=== PATIENT | female | born 1930 | race African-American/Black ===

== ENCOUNTER 2016-10-24 13:10 | Emergency (ER) | payer OTHER ==
[~2016-10-24] VITALS: Ht 162.6 cm; Wt 60.0 kg
[~2016-10-24 13:10] MED LIST: DIGOXIN; WARFARIN
[2016-10-24] MEDS ORDERED: ACETAMINOPHEN 325MG TABLET PO ONE (14:15)
[2016-10-24 14:37] LABS: HEMATOCRIT. 42.9 % (36.0-48.0); HEMOGLOBIN. 14.2 g/dL (12.0-16.0); MEAN CORPUSCULAR HEMOGLOBIN 25.5 pg (28.0-32.0); MEAN CORPUSCULAR HGB CONC 33.1 g/dL (31.0-37.0); MEAN CORPUSCULAR VOLUME 77.3 fL (81.0-99.0); PLATELET 193 x1000/uL (130-400); RED BLOOD CELL COUNT 5.55 mill/uL (4.2-5.4); RED CELL DISTRIBUTION WIDTH 20.8 % (11.6-14.6); WHITE BLOOD COUNT 7.8 x1000/uL (4.5-11.0)
[2016-10-24 14:40] LABS: DIFFERENTIAL COMMENT 1
[2016-10-24 14:43] LABS: CLARITY URINE CLOUDY (CLEAR); COLOR URINE YELLOW (YELLOW); GLUCOSE URINE NEGATIVE (NEGATIVE); KETONES URINE NEGATIVE (NEGATIVE); LEUKOCYTE ESTERASE URINE 2+ (NEGATIVE); NITRITE URINE NEGATIVE (NEGATIVE); OCCULT BLOOD URINE TRACE (NEGATIVE); PROTEIN URINE 1+ (NEGATIVE)
[2016-10-24 14:53] LABS: ALANINE AMINOTRANSFERASE 23 IU/L (13-61); ALBUMIN 3.1 g/dL (3.4-5.0); ANION GAP 13; CALCIUM 10.3 mg/dL (8.5-10.1); CARBON DIOXIDE 28 mEq/L (21-32); CHLORIDE 106 mEq/L (98-107); INDEX HEMOLYSI 3 (1-3); INDEX ICTERIC 1 (1-4); INDEX LIPEMIC 1 (1-3); UREA NITROGEN BLOOD 14 mg/dL (7-21); eGFR > 60 mL/min (>60)
[2016-10-24 14:56] LABS: ANISOCYTOSIS 2+; GIANT PLATELETS 1+; OVALOCYTES 2+; PLATELET ESTIMATE NORMAL
[2016-10-24 15:01] LABS: WBC URINE 25-50 /hpf (0-2)
[2016-10-24 15:02] LABS: BACTERIA URINE 2+; RBC URINE 0-2 /hpf (0-2)
[2016-10-24 15:03] LABS: SQUAMOUS EPITHELIAL CELL URINE RARE /lpf (RARE/1+)
[2016-10-24 15:04] LABS: DIGOXIN 1.2 ng/mL (0.9-2.0)
[2016-10-24] MEDS ORDERED: CEFTRIAXONE 1 G PREMIX 50 ML IV ONE (15:30)
[2016-10-24] MEDS ORDERED: SODIUM CHLORIDE 0.9% 500 ML IV ONE (15:42)
[2016-10-24 17:07] VITALS: BP 170/98
== END 2016-10-24 17:39 | disposition short-term general hospital (02) ==
LOC: ER 14:01
DX: R62.7 Adult failure to thrive (principal); I48.91 Unspecified atrial fibrillation; R41.82 Altered mental status, unspecified; N39.0 Urinary tract infection, site not specified; I10 Essential (primary) hypertension; M19.90 Unspecified osteoarthritis, unspecified site
CPT/HCPCS: 36415; 51702; 71010; 80053; 80162; 81001; 85025; 85610; 93005; 96365; 99285; J0696; J7030

== ENCOUNTER 2017-04-06 12:25 | Inpatient (IN) | payer OTHER ==
[~2017-04-06] VITALS: Ht 162.6 cm; Wt 68.9 kg
[2017-04-06] MEDS ORDERED: SODIUM CHLORIDE 0.9% 1,000 ML IV ONE ×2 (12:49→15:10)
[2017-04-06 13:32] LABS: HEMATOCRIT. 22.7 % (36.0-48.0); MEAN CORPUSCULAR HEMOGLOBIN 20.7 pg (28.0-32.0); MEAN CORPUSCULAR VOLUME 66.9 fL (81.0-99.0); MEAN PLATELET VOLUME 9.7 fl (7.4-10.4); PLATELET 572 x1000/uL (130-400); RED CELL DISTRIBUTION WIDTH 28.3 % (11.6-14.6)
[2017-04-06 13:39] LABS: INR 1.2; PARTIAL THROMBOPLASTIN TIME 21.7 sec (23.4-31.0); PROTHROMBIN TIME 12.5 sec (9.4-11.6)
[2017-04-06] MEDS ORDERED: LEVOFLOXACIN 750MG PREMIX 150 ML IV ONE (13:45)
[2017-04-06 13:49] LABS: CARBON DIOXIDE 24 mEq/L (21-32); CHLORIDE 105 mEq/L (98-107); ETHANOL BLOOD < 10 mg/dL; TROPONIN I 0.04 ng/mL (0.00-0.04)
[2017-04-06 13:53] LABS: BG CARBOXYHEMOGLOBIN 0.3 % (0.5-1.5); BG DEOXYHEMOGLOBIN 3.5 % (0.0-5.0); BG FRACTION INSPIRED OXYGEN 21; BG HCO3 ACT 20.3 mmol/L (22.0-26.0); BG METHEMOGLOBIN 0.1 % (0.0-1.5); BG OXYGEN SATURATION 96.5 % (92.0-98.5); BG OXYHEMOGLOBIN 96.1 % (94.0-97.0); BG PCO2 29.2 mmHg (35.0-45.0); BG PO2 92.4 mmHg (75.0-100.0); BG SAMPLE SITE RIGHT RADIAL; BG TOTAL HEMOGLOBIN 7.6 g/dL (12.0-18.0); BG VENT MODE ROOM AIR
[2017-04-06 14:03] LABS: PLATELET ESTIMATE INCREASED
[2017-04-06 14:05] LABS: DIGOXIN 1.9 ng/mL (0.9-2.0)
[2017-04-06] MEDS ORDERED: LIDOCAINE HCL 1% 20ML VIAL (Pyxis) INJ ONE (14:41)
[2017-04-06] MEDS ORDERED: PANTOPRAZOLE SODIUM 40 MG/VIAL IV ONE (15:15)
[2017-04-06 17:07] LABS: CLARITY URINE CLOUDY (CLEAR); COLOR URINE DARK YELLOW (YELLOW); GLUCOSE URINE NEGATIVE (NEGATIVE); KETONES URINE NEGATIVE (NEGATIVE); LEUKOCYTE ESTERASE URINE TRACE (NEGATIVE); NITRITE URINE NEGATIVE (NEGATIVE); OCCULT BLOOD URINE NEGATIVE (NEGATIVE); PROTEIN URINE TRACE (NEGATIVE); SPECIFIC GRAVITY URINE 1.022 (1.005-1.030)
[2017-04-06 17:24] LABS: *AMPHETAMINES SCREEN URINE NEGATIVE (NEGATIVE); *BARBITURATES SCREEN URINE NEGATIVE (NEGATIVE); *BENZODIAZEPINES SCREEN URINE NEGATIVE (NEGATIVE); *COCAINE SCREEN URINE NEGATIVE (NEGATIVE); CANNABINOID URINE SCREEN NEGATIVE (NEGATIVE); METHADONE URINE SCREEN NEGATIVE (NEGATIVE); OPIATES URINE SCREEN NEGATIVE (NEGATIVE); PHENCYCLIDINE URINE SCREEN NEGATIVE (NEGATIVE)
[2017-04-06] MEDS ORDERED: MAGNESIUM/ALUMINUM HYDROXIDE/SIMETHICONE 30ML UDC PO PRN (21:15)
[2017-04-06] MEDS ORDERED: IPRATROPIUM/ALBUTEROL 0.5-3(2.5)MG/3ML NEB INH PRN (21:15)
[2017-04-06] MEDS ORDERED: DEXTROSE 50% WATER 50ML SYRINGE IV PRN (21:15)
[2017-04-06] MEDS ORDERED: ONDANSETRON HCL 4MG/2ML VIAL IV PRN (21:15)
[2017-04-06] MEDS ORDERED: DIPHENHYDRAMINE 50MG/ML VIAL IV PRN (21:15)
[2017-04-06] MEDS ORDERED: ACETAMINOPHEN 650MG/20.3ML UDC GT PRN (21:15)
[2017-04-06] MEDS ORDERED: DOCUSATE SODIUM 100MG CAPSULE PO PRN (21:15)
[2017-04-06] MEDS ORDERED: CLONIDINE 0.1MG TABLET PO PRN (21:15)
[2017-04-06] MEDS ORDERED: ACETAMINOPHEN 650MG SUPP PR PRN (21:15)
[2017-04-06] MEDS ORDERED: HYDROCODONE/ACETAMINOPHEN 5/325MG TABLET PO PRN (21:15)
[2017-04-06 22:00] VITALS: BP 125/54
[2017-04-06] MEDS ORDERED: NA PHOS,M-B/NA PHOS,DI-BA ENEMA 118ML PR PRN (22:00)
[2017-04-06] MEDS: SODIUM CHLORIDE 0.9% INJ 3ML FLUSH IVF SCH (23:45)
[2017-04-07] VITALS (18 sets, daily range): BP systolic 100–134; BP diastolic 36–76
[2017-04-07] MEDS: SODIUM CHLORIDE 0.9% INJ 3ML FLUSH IVF SCH ×3 (06:45→21:34)
[2017-04-07] MEDS: BLOOD SUGAR DIAGNOSTIC STRIP TEST SCH ×4 (07:30→21:33)
[2017-04-07] MEDS: INSULIN LISPRO 100 UNITS/ML SUBCUT SCH ×4 (08:00→21:00)
[2017-04-07 10:16] LABS: BASOPHILS % 0.4 % (0.0-2.0); EOSINOPHILS % 0.7 % (0.0-5.0); HEMATOCRIT. 23.5 % (36.0-48.0); HEMOGLOBIN. 7.3 g/dL (12.0-16.0); LYMPHOCYTES % 9.8 % (20.0-50.0); MEAN CORPUSCULAR HEMOGLOBIN 22.5 pg (28.0-32.0); MEAN CORPUSCULAR VOLUME 72.4 fL (81.0-99.0); MEAN PLATELET VOLUME 9.3 fl (7.4-10.4); MONOCYTES % 4.5 % (2.0-8.0); NEUTROPHILS % 84.6 % (40.0-76.0); PLATELET 368 x1000/uL (130-400); RED BLOOD CELL COUNT 3.24 mill/uL (4.2-5.4); RED CELL DISTRIBUTION WIDTH 29.1 % (11.6-14.6)
[2017-04-07 12:28] LABS: CARBON DIOXIDE 23 mEq/L (21-32); CHLORIDE 111 mEq/L (98-107); HDL CHOLESTEROL 18 mg/dL (40-59); LDL CHOLESTEROL 21 mg/dL (5-100); TROPONIN I 0.03 ng/mL (0.00-0.04)
[2017-04-07] MEDS: SODIUM CHLORIDE 0.45% 1,000 ML IV SCH (14:58)
[2017-04-08] VITALS (13 sets, daily range): BP systolic 101–156; BP diastolic 46–79
[2017-04-08 00:50] LABS: HEMATOCRIT 29.2 % (36.0-48.0); HEMOGLOBIN 9.4 g/dL (12.0-16.0)
[2017-04-08] MEDS: SODIUM CHLORIDE 0.45% 1,000 ML IV SCH ×2 (01:43→13:15)
[2017-04-08] MEDS ORDERED: VANCOMYCIN 1 G PREMIX 200 ML IV SCH (04:00)
[2017-04-08] MEDS: SODIUM CHLORIDE 0.9% INJ 3ML FLUSH IVF SCH ×2 (05:06→14:00)
[2017-04-08] MEDS: INSULIN LISPRO 100 UNITS/ML SUBCUT SCH ×3 (08:00→18:00)
[2017-04-08] MEDS: BLOOD SUGAR DIAGNOSTIC STRIP TEST SCH ×3 (08:06→18:27)
[2017-04-08 09:50] LABS: CARBON DIOXIDE 23 mEq/L (21-32); CHLORIDE 111 mEq/L (98-107)
[2017-04-08 11:35] LABS: BASOPHILS % 0.6 % (0.0-2.0); HEMATOCRIT. 30.4 % (36.0-48.0); HEMOGLOBIN. 9.8 g/dL (12.0-16.0); LYMPHOCYTES % 8.8 % (20.0-50.0); MEAN CORPUSCULAR HEMOGLOBIN 24.1 pg (28.0-32.0); MEAN CORPUSCULAR VOLUME 74.9 fL (81.0-99.0); MEAN PLATELET VOLUME 10.1 fl (7.4-10.4); MONOCYTES % 4.7 % (2.0-8.0); NEUTROPHILS % 84.9 % (40.0-76.0); PLATELET 407 x1000/uL (130-400); RED BLOOD CELL COUNT 4.05 mill/uL (4.2-5.4); RED CELL DISTRIBUTION WIDTH 28.9 % (11.6-14.6)
[2017-04-08] MEDS ORDERED: METOPROLOL TARTRATE 25MG TABLET PO SCH (21:00)
[2017-04-08] MEDS ORDERED: PANTOPRAZOLE SODIUM 40 MG/VIAL IV SCH (21:00)
[2017-04-09] MEDS ORDERED: VANCOMYCIN 750 MG PREMIX 150 ML IV SCH ×2 (04:00)
== END 2017-04-08 21:36 | disposition short-term general hospital (02) | DRG 377 ==
LOC: ER 13:30 → 5EST 15:33 → EDBEDREQTM 15:36 → EDBEDREQ 15:36 → ENRESERV 19:18 → EDBEDREQ 23:16
PROVIDERS: ADMIT Family Medicine; ATTEND Family Medicine
PROC: 30233N1 Transfusion of Nonautologous Red Blood Cells into Peripheral Vein, Percutaneous Approach (ICD-10-PCS; principal; 2017-04-06)
PROC: 02HV33Z Insertion of Infusion Device into Superior Vena Cava, Percutaneous Approach (ICD-10-PCS; 2017-04-06)
PROC: B5181ZA Fluoroscopy of Superior Vena Cava using Low Osmolar Contrast, Guidance (ICD-10-PCS; 2017-04-06)
PROC: B548ZZA Ultrasonography of Superior Vena Cava, Guidance (ICD-10-PCS; 2017-04-06)
DX: K92.2 Gastrointestinal hemorrhage, unspecified (principal); E43 Unspecified severe protein-calorie malnutrition; G93.40 Encephalopathy, unspecified; I82.402 Acute embolism and thrombosis of unspecified deep veins of left lower extremity; E87.2 Acidosis; E11.65 Type 2 diabetes mellitus with hyperglycemia; I48.91 Unspecified atrial fibrillation; D62 Acute posthemorrhagic anemia; M19.90 Unspecified osteoarthritis, unspecified site; D72.829 Elevated white blood cell count, unspecified; I10 Essential (primary) hypertension; J44.9 Chronic obstructive pulmonary disease, unspecified; Z74.01 Bed confinement status; Z68.26 Body mass index [BMI] 26.0-26.9, adult; Z79.01 Long term (current) use of anticoagulants; Z79.899 Other long term (current) drug therapy; Z86.73 Personal history of transient ischemic attack (TIA), and cerebral infarction without residual deficits; Z82.49 Family history of ischemic heart disease and other diseases of the circulatory system
CPT/HCPCS: 36415; 36569; 36600; 70450; 71010; 76937; 77001; 78582; 80048; 80053; 80061; 80162; 80305; 80307; 80329; 81001; 82375; 82805; 82962; 83605; 83880; 84484; 85014; 85018; 85025; 85379; 85610; 85730; 86850; 86900; 86920; 87040; 87077; 87086; 93005; 93970; 96365; 96366; 96367; 99291; A9558; C1725; C9113; G0482; J1956; J3370; J3490; J7030; J7050; P9016

== ENCOUNTER 2017-07-20 16:59 | Inpatient (IN) | payer OTHER ==
[~2017-07-20] VITALS: Ht 162.6 cm; Wt 67.8 kg
[~2017-07-20 16:59] MED LIST changes: +ALLO100T PO; +ASPI-1159 PO; +ATOR20TA65 PO; +COLC0.6T66 PO; +DIGO125T82 PO; -DIGOXIN; +METO-539 PO; +TURM538C PO; +VITA-261 PO; -WARFARIN
[2017-07-20] MEDS ORDERED: SODIUM CHLORIDE 0.9% 1,000 ML IV ONE (19:48)
[2017-07-20 20:15] LABS: EOSINOPHILS % 0.3 % (0.0-5.0); HEMATOCRIT. 28.9 % (36.0-48.0); HEMOGLOBIN. 9.6 g/dL (12.0-16.0); LYMPHOCYTES % 14.7 % (20.0-50.0); MEAN CORPUSCULAR HEMOGLOBIN 26.1 pg (28.0-32.0); MEAN CORPUSCULAR VOLUME 78.3 fL (81.0-99.0); MEAN PLATELET VOLUME 9.2 fl (7.4-10.4); MONOCYTES % 5.1 % (2.0-8.0); NEUTROPHILS % 78.9 % (40.0-76.0); PLATELET 365 x1000/uL (130-400); RED BLOOD CELL COUNT 3.69 mill/uL (4.2-5.4); RED CELL DISTRIBUTION WIDTH 27.4 % (11.6-14.6)
[2017-07-20 20:22] LABS: INR 1.3; PROTHROMBIN TIME 13.3 sec (9.4-11.6)
[2017-07-20 20:32] LABS: CARBON DIOXIDE 25 mEq/L (21-32); CHLORIDE 107 mEq/L (98-107); PLATELET ESTIMATE NORMAL; TROPONIN I 0.15 ng/mL (0.00-0.04)
[2017-07-20 20:42] LABS: CLARITY URINE TURBID (CLEAR); COLOR URINE YELLOW (YELLOW); KETONES URINE NEGATIVE (NEGATIVE); LEUKOCYTE ESTERASE URINE 3+ (NEGATIVE); NITRITE URINE NEGATIVE (NEGATIVE); OCCULT BLOOD URINE 2+ (NEGATIVE); PH URINE 6.5 (4.5-8.0); PROTEIN URINE 1+ (NEGATIVE)
[2017-07-20] MEDS ORDERED: AMIODARONE HCL 900 MG in DEXT 5% WATER 482 ML IV STA (20:48)
[2017-07-20] MEDS ORDERED: PIPERACILLIN SODIUM/TAZOBACTAM 4.5 G in DEXT 5% WATER 100 ML IV SCH (21:00)
[2017-07-20] MEDS ORDERED: VANCOMYCIN 1 G PREMIX 200 ML IV SCH (21:00)
[2017-07-20] MEDS ORDERED: AMIODARONE HCL 900 MG in DEXT 5% WATER 482 ML IV NR (22:00)
[2017-07-20] MEDS ORDERED: PIPERACILLIN SODIUM/TAZOBACTAM 4.5 G in SODIUM CHLORIDE 0.9% 100 ML IV SCH (22:01)
[2017-07-20] MEDS ORDERED: DIPHENHYDRAMINE 50MG/ML VIAL IV PRN (22:15)
[2017-07-20] MEDS ORDERED: MORPHINE SULFATE 4 MG/ML CPJ (NOT FOR IM USE) IV PRN (22:15)
[2017-07-20] MEDS ORDERED: GUAIFENESIN 200MG/10ML SUGAR FREE UDC PO PRN (22:15)
[2017-07-20] MEDS ORDERED: NITROGLYCERIN 0.4MG TABLET SL SL PRN (22:15)
[2017-07-20] MEDS ORDERED: DOCUSATE SODIUM 100MG CAPSULE PO PRN (22:15)
[2017-07-20] MEDS ORDERED: IPRATROPIUM/ALBUTEROL 0.5-3(2.5)MG/3ML NEB INH PRN (22:15)
[2017-07-20] MEDS ORDERED: CLONIDINE 0.1MG TABLET PO PRN (22:15)
[2017-07-20] MEDS ORDERED: TRAMADOL 50MG TABLET PO PRN (22:15)
[2017-07-20] MEDS ORDERED: DIGOXIN 500MCG/2ML AMP IV SCH (22:15)
[2017-07-20] MEDS ORDERED: MAGNESIUM/ALUMINUM HYDROXIDE/SIMETHICONE 30ML UDC PO PRN (22:15)
[2017-07-20] MEDS ORDERED: ONDANSETRON HCL 4MG/2ML VIAL IV PRN (22:15)
[2017-07-20 22:59] LABS: DIGOXIN 1.4 ng/mL (0.9-2.0)
[2017-07-21] VITALS (11 sets, daily range): BP systolic 90–130; BP diastolic 56–75
[2017-07-21] MEDS ORDERED: KCL 20MEQ/100ML PREMIX 100 ML IV SCH (01:27)
[2017-07-21] MEDS ORDERED: ZOLPIDEM TARTRATE 5MG TABLET PO PRN (05:01)
[2017-07-21] MEDS ORDERED: NA PHOS,M-B/NA PHOS,DI-BA ENEMA 118ML PR PRN (05:03)
[2017-07-21] MEDS ORDERED: VANCOMYCIN 1250MG in DEXTROSE 5% WATER 250ML IV SCH (06:00)
[2017-07-21] MEDS: PIPERACILLIN/TAZ 3.375G PREMIX 50 ML IV SCH ×2 (06:12→18:53)
[2017-07-21] MEDS ORDERED: ASPIRIN 325MG EC TABLET PO SCH (09:00)
[2017-07-21] MEDS ORDERED: FAMOTIDINE 20MG/2ML VIAL IV SCH (09:00)
[2017-07-21] MEDS ORDERED: ZINC SULFATE 220 MG ( 50 ) CAPSULE PO SCH (09:00)
[2017-07-21] MEDS ORDERED: ALLOPURINOL 100 MG TABLET PO SCH (09:00)
[2017-07-21] MEDS ORDERED: ENOXAPARIN 60MG/0.6ML SYR SUBCUT SCH (09:00)
[2017-07-21 10:27] LABS: CREATINE KINASE MB FRACTION 4.4 ng/mL (0.5-3.6); TROPONIN I 0.15 ng/mL (0.00-0.04)
[2017-07-21] MEDS: SUCRALFATE 1 G/10 ML UDC PO SCH ×3 (11:12→17:30)
[2017-07-21] MEDS ORDERED: DIGOXIN 125MCG TABLET PO SCH (18:00)
[2017-07-21 20:01] LABS: CREATINE KINASE MB FRACTION 4.3 ng/mL (0.5-3.6); TROPONIN I 0.13 ng/mL (0.00-0.04)
[2017-07-21] MEDS ORDERED: ATORVASTATIN CALCIUM 10MG TABLET PO SCH (21:00)
[2017-07-21] MEDS ORDERED: METOPROLOL TARTRATE 25MG TABLET PO SCH (21:00)
[2017-07-22] MEDS ORDERED: VANCOMYCIN 750 MG PREMIX 150 ML IV SCH (02:00)
== END 2017-07-21 23:32 | disposition short-term general hospital (02) | DRG 871 ==
LOC: ER 17:12 → 5EST 22:10 → ENRESERV 07-21 02:18 → 5EST 07-21 05:23
PROVIDERS: ADMIT Internal Medicine; ATTEND Internal Medicine
DX: A41.9 Sepsis, unspecified organism (principal); E43 Unspecified severe protein-calorie malnutrition; I21.4 Non-ST elevation (NSTEMI) myocardial infarction; L89.159 Pressure ulcer of sacral region, unspecified stage; G92 Toxic encephalopathy; E87.5 Hyperkalemia; I48.2 Chronic atrial fibrillation; E11.621 Type 2 diabetes mellitus with foot ulcer; L97.419 Non-pressure chronic ulcer of right heel and midfoot with unspecified severity; N39.0 Urinary tract infection, site not specified; L97.429 Non-pressure chronic ulcer of left heel and midfoot with unspecified severity; I69.359 Hemiplegia and hemiparesis following cerebral infarction affecting unspecified side; D63.8 Anemia in other chronic diseases classified elsewhere; M10.9 Gout, unspecified; I11.9 Hypertensive heart disease without heart failure; E78.00 Pure hypercholesterolemia, unspecified; E87.6 Hypokalemia; M19.90 Unspecified osteoarthritis, unspecified site; Z74.01 Bed confinement status; Z79.899 Other long term (current) drug therapy; Z79.82 Long term (current) use of aspirin; Z68.25 Body mass index [BMI] 25.0-25.9, adult
CPT/HCPCS: 36415; 71045; 80053; 80061; 80162; 81001; 82550; 82553; 82962; 83036; 83605; 83690; 83880; 84484; 85025; 85610; 87040; 87077; 87086; 87186; 93005; 93970; 96365; 96366; 96367; 96375; 99285; C1893; J0282; J1650; J2270; J2543; J3370; J3480; J3490; J7030; J7050; J7060; A4315